=== PATIENT | female | born 1950 | race Caucasian/White ===

== ENCOUNTER 2018-07-07 12:54 | Emergency (ER) | payer MEDICARE ==
[~2018-07-07 12:54] MED LIST: Sodium Chloride Irrig Solution 250 ML BOT ONE
--- NOTE | 2018-07-07 13:54 | CT ---
EXAM: CT face without contrast HISTORY: Facial trauma COMPARISON: None TECHNIQUE: Multiple contiguous axial images were obtained and a CT of the face without contrast. Sagi ttal and coronal reformats were performed. FINDINGS: No facial fractures are identified. Mild left periorbital facial soft tissue swelling is s een. The globes and retrobulbar soft tissues are unremarkable. The visualized paranasal sinuses are well aerated without evidence of opacification. The mastoid air cells are well aerated. Visualized intracranial structures are unremarkable. IMPRESSION: No evidence of facial fracture
--- NOTE | 2018-07-07 14:00 | CT ---
EXAM: Brain CTWithout contrast: HISTORY: Injury after a fall COMPARISON: None FINDINGS: Left supraorbital soft tissue swelling. Prominent atrophy and chronic white matter ischemic change. No focal mass or midline shift. No intra or extra-axial hemorrhage. Sinuses and mastoids are clear of acute process. IMPRESSION: No mass or bleed or other significant acute intracranial process.
== END 2018-07-07 14:17 | disposition home or self-care (01) ==
LOC: MADERS 12:54
DX: S00.83XA Contusion of other part of head, initial encounter (principal); S80.211A Abrasion, right knee, initial encounter; S60.511A Abrasion of right hand, initial encounter; F41.9 Anxiety disorder, unspecified; Z87.891 Personal history of nicotine dependence; Z79.899 Other long term (current) drug therapy; W18.30XA Fall on same level, unspecified, initial encounter
CPT/HCPCS: 70450; 70486